=== PATIENT | male | born 1965 | race Caucasian/White ===

== ENCOUNTER 2024-09-14 20:31 | Emergency (ER) | payer OTHER ==
[2024-09-14] MEDS: Diphtheria,Pertussis(Acell),Tetanus Vaccine 0.5 ML Syringe IM ONE (23:03)
== END 2024-09-14 23:24 | disposition home or self-care (01) ==
LOC: JP.ED 20:31
DX: S60.455A Superficial foreign body of left ring finger, initial encounter (principal); I10 Essential (primary) hypertension; E11.9 Type 2 diabetes mellitus without complications; Z88.8 Allergy status to other drugs, medicaments and biological substances; Z88.7 Allergy status to serum and vaccine; W45.8XXA Other foreign body or object entering through skin, initial encounter; Z23 Encounter for immunization
CPT/HCPCS: 90471; 90715; 99283; J2003